=== PATIENT | male | born 1980 | race African-American/Black ===

== ENCOUNTER → 2019-01-08 | Outpatient (CLI) | payer BC | END | disposition home or self-care (01) | LOC: LAB 16:51 | DX: R31.9 Hematuria, unspecified (principal) ==

== ENCOUNTER 2020-02-08 21:46 | Emergency (ER) | payer BC, OTHER ==
[~2020-02-08] VITALS: Ht 177.8 cm; Wt 72.6 kg
[2020-02-09 01:44] VITALS: BP 115/78
== END 2020-02-09 05:17 | disposition home or self-care (01) ==
LOC: ER 21:46
DX: S01.111A Laceration without foreign body of right eyelid and periocular area, initial encounter (principal); J45.909 Unspecified asthma, uncomplicated; W18.00XA Striking against unspecified object with subsequent fall, initial encounter; Y93.89 Activity, other specified; Y92.89 Other specified places as the place of occurrence of the external cause; Y99.8 Other external cause status
CPT/HCPCS: 12013; 70450; 72125

== ENCOUNTER 2020-02-12 12:14 | Emergency (ER) | payer BC, MEDICAID, OTHER ==
[~2020-02-12] VITALS: Ht 177.8 cm; Wt 74.8 kg
[2020-02-12 13:37] VITALS: BP 114/86
== END 2020-02-12 14:39 | disposition home or self-care (01) ==
LOC: ER 12:14
DX: M62.838 Other muscle spasm (principal)
CPT/HCPCS: 73130

== ENCOUNTER 2020-02-16 17:07 | Emergency (ER) | payer MEDICAID ==
[~2020-02-16] VITALS: Ht 177.8 cm; Wt 74.8 kg
[2020-02-16 17:14] VITALS: BP 136/96
== END 2020-02-16 17:54 | disposition home or self-care (01) ==
LOC: ER 17:07
DX: S01.81XD Laceration without foreign body of other part of head, subsequent encounter (principal); F17.210 Nicotine dependence, cigarettes, uncomplicated; X58.XXXD Exposure to other specified factors, subsequent encounter

== ENCOUNTER 2021-09-04 23:15 | Emergency (ER) | payer MEDICAID ==
[~2021-09-04] VITALS: Ht 177.8 cm; Wt 80.7 kg
[2021-09-05 00:55] VITALS: BP 132/80
[2021-09-05] MEDS ORDERED: IBU600T PO (02:38)
[2021-09-08] MEDS ORDERED: IBU600T PO (16:55)
== END 2021-09-05 02:46 | disposition home or self-care (01) ==
LOC: ER 23:15
DX: M19.90 Unspecified osteoarthritis, unspecified site (principal); M50.80 Other cervical disc disorders, unspecified cervical region; J45.909 Unspecified asthma, uncomplicated; F17.210 Nicotine dependence, cigarettes, uncomplicated
CPT/HCPCS: 70450; 72125

== ENCOUNTER 2021-09-15 15:41 | Emergency (ER) | payer MEDICAID ==
[~2021-09-15] VITALS: Ht 177.8 cm; Wt 81.6 kg
[~2021-09-15 15:41] MED LIST: IBU600T PO
[2021-09-15] MEDS ORDERED: ACET-6 PO (21:00)
[2021-09-15] MEDS ORDERED: CYCLOBENZAPRINE HCL 10 MG TAB PO ONE (21:00)
[2021-09-15] MEDS ORDERED: IBUP400T23 PO (21:00)
[2021-09-15] MEDS ORDERED: KETOROLAC TROMETH 30 MG/ML 1ML VIAL IM ONE (21:00)
[2021-09-15 21:07] VITALS: BP 133/87
== END 2021-09-15 21:11 | disposition home or self-care (01) ==
LOC: ER 15:41
DX: M79.602 Pain in left arm (principal); M79.10 Myalgia, unspecified site; M50.90 Cervical disc disorder, unspecified, unspecified cervical region; J45.909 Unspecified asthma, uncomplicated; F17.210 Nicotine dependence, cigarettes, uncomplicated; Z79.1 Long term (current) use of non-steroidal anti-inflammatories (NSAID)
CPT/HCPCS: 96372; 99283; J1885

== ENCOUNTER 2021-09-24 16:50 | Emergency (ER) | payer MEDICAID ==
[~2021-09-24] VITALS: Ht 177.8 cm; Wt 80.7 kg
[~2021-09-24 16:50] MED LIST changes: +ACET-6 PO; +IBUP400T23 PO
[2021-09-24 16:53] VITALS: BP 120/96
[2021-09-24] MEDS ORDERED: KETOROLAC TROMETH 60MG/2ML VIAL IM ONE (18:15)
== END 2021-09-24 20:39 | disposition home or self-care (01) ==
LOC: ER 16:50
DX: M50.10 Cervical disc disorder with radiculopathy, unspecified cervical region (principal); F17.210 Nicotine dependence, cigarettes, uncomplicated; J45.909 Unspecified asthma, uncomplicated

== ENCOUNTER 2023-11-08 21:34 | Emergency (ER) | payer MEDICAID ==
[~2023-11-08] VITALS: Ht 177.8 cm; Wt 89.0 kg
[2023-11-08 21:34] VITALS: BP 130/90; PULSE 74; RESP 20; O2SAT 95
[~2023-11-08 21:34] MED LIST changes: +IBUP1TAB4 PO; -IBUP400T23 PO
== END 2023-11-09 02:32 | disposition left against medical advice (07) ==
LOC: ER 21:34
DX: K62.89 Other specified diseases of anus and rectum (principal); Z53.21 Procedure and treatment not carried out due to patient leaving prior to being seen by health care provider